=== PATIENT | female | born 1940 ===

== ENCOUNTER 2020-10-30 05:00 | Outpatient (REF) | payer MEDICARE, SELFPAY | END 2020-10-30 05:01 | disposition home or self-care (01) | LOC: HO.MMNH2L 05:00 | PROVIDERS: Visit Provider Family Medicine | DX: Z13.89 Encounter for screening for other disorder (principal) ==

== ENCOUNTER 2020-10-30 06:34 | Outpatient (REF) | payer MEDICARE, SELFPAY | END 2020-10-30 06:35 | disposition home or self-care (01) | LOC: HO.MMNH2L 06:34 | PROVIDERS: Visit Provider Family Medicine | DX: Z13.89 Encounter for screening for other disorder (principal) ==